=== PATIENT | female | born 1990 | race Asian ===

== ENCOUNTER 2016-12-13 14:30 | Outpatient (CLI) | payer OTHER ==
[2016-12-13] MEDS ORDERED: ALBUTEROL NEB 2.5 MG/3 ML INH ONE (15:35)
== END 2016-12-13 14:31 | disposition home or self-care (01) ==
DX: R05 Cough (principal)
CPT/HCPCS: 94060; 94664; 94729; J7613

== ENCOUNTER 2017-06-24 15:58 | Emergency (ER) | payer OTHER ==
[2017-06-24 16:15] VITALS: BP 125/86
[2017-06-24 17:02] LABS: BASOPHILS # (AUTO) 0.1 10^3/uL (0.0-0.1); BASOPHILS % (AUTO) 0.9 %; EOSINOPHILS # (AUTO) 0.1 10^3/uL (0.0-0.7); EOSINOPHILS % (AUTO) 1.1 %; HCT - HEMATOCRIT 40.4 % (37.0-47.0); HGB - HEMOGLOBIN 13.8 g/dL (12.0-16.0); LYMPHOCYTES # (AUTO) 2.9 10^3/uL (1.5-3.5); MEAN CORPUSCULAR HEMOGLOBIN 29.8 pg (27.0-31.0); MEAN CORPUSCULAR HGB CONC 34.2 g/dL (32.0-36.0); MEAN CORPUSCULAR VOLUME 87.1 fL (81.0-99.0); MEAN PLATELET VOLUME 6.6 fL (7.9-10.8); MONOCYTES # (AUTO) 0.8 10^3/uL (0.0-1.0); MONOCYTES % (AUTO) 7.6 %; NEUTROPHILS # (AUTO) 6.8 10^3/uL (1.5-6.6); NEUTROPHILS % (AUTO) 63.4 %; NUCLEATED RED BLOOD CELLS AUTO 0.1 /100WBC; RED BLOOD COUNT 4.64 10^6/uL (4.20-5.40); RED CELL DISTRIBUTION WIDTH 13.3 % (12.0-15.0); UNCORRECTED WHITE BLOOD COUNT 10.7 x10^3/uL; WHITE BLOOD COUNT 10.7 x10^3/uL (4.8-10.8)
[2017-06-24 17:16] LABS: ALBUMIN/GLOBULIN RATIO 1.4 (1.0-2.2); BILIRUBIN,TOTAL 0.5 mg/dL (0.2-1.0); CALCIUM 9.4 mg/dL (8.5-10.3); CREATININE 0.6 mg/dL (0.4-1.0); POTASSIUM 3.3 mmol/L (3.5-5.0); TOTAL PROTEIN 7.8 g/dL (6.7-8.2)
--- NOTE | 2017-06-24 17:23 | ED Physician Documentation ---
PD HPI CHEST PAIN - Stated complaint Stated Complaint: CP - Chief complaint Chief Complaint: Cardiac - History obtained from History obtained from: Patient - History of Present Illness Timing - onset: Today Timing - onset during: Light activity Timing - details: Abrupt onset, Still present, Intermittant Quality: Aching, Sharp, Pain Location: Right chest Radiation: Right upper extremity (anterior shoulder) Worsened by: Inspiration, Movement (of right arm) Associated symptoms: Feeling faint / dizzy. No: Shortness of air, Diaphoresis, Nausea, General Weakness, Palpitations Similar symptoms before: Has not had sx before Recently seen: Not recently seen Review of Systems Constitutional: denies: Fever, Chills Nose: denies: Rhinorrhea / runny nose, Congestion Throat: denies: Sore throat Cardiac: denies: Palpitations, Pedal edema, Calf pain Respiratory: denies: Cough, Wheezing GI: denies: Abdominal Pain, Nausea, Vomiting, Diarrhea Skin: denies: Rash, Lesions Musculoskeletal: denies: Neck pain, Back pain Neurologic: reports: Near syncope (felt lightheaded at onset of the pain but then normal since.). denies: Generalized weakness, Focal weakness, Numbness, Altered mental status, Headache PD PAST MEDICAL HISTORY - Past Medical History Cardiovascular: None Respiratory: None Endocrine/Autoimmune: None - Present Medications Home Medications: Ambulatory Orders Medication Instructions Recorded Confirmed Albuterol Sulf [Ventolin Hfa 1 - 2 puffs INH Q4HR PRN #1 inhaler 06/24/17 Inhaler] Naproxen 375 mg PO BID #20 tablet 06/24/17 - Allergies Allergies/Adverse Reactions: Allergies Allergy/AdvReac Type Severity Reaction Status Date / Time No Known Drug Allergies Allergy Verified 06/24/17 16:14 PD ED PE NORMAL - Vitals Vital signs reviewed: Yes - General General: Alert and oriented X 3, No acute distress, Well developed/nourished - HEENT HEENT: Ears normal, Moist mucous membranes, Pharynx benign - Neck Neck: Supple, no meningeal sign, No adenopathy - Cardiac Cardiac: RRR, No murmur - Respiratory Respiratory: Clear bilaterally, Other (some chestwall tenderness right pectoral muscle area and with ROM of the right arm.) - Abdomen Abdomen: Soft, Non tender - Extremities Extremities: No tenderness to palpate, Normal ROM s pain, No edema, No calf tenderness / cord - Neuro Neuro: Alert and oriented X 3, No motor deficit, Normal speech - Psych Psych: Normal mood, Normal affect Results - Vitals Vitals: Oxygen O2 Source Room air - EKG (time done) on presentation Rhythm: NSR [place]: Normal Intervals: Normal [place] QRS: Normal Ischemia: Normal ST segments. No: ST elevation c/w ischemia, ST depression - Labs Labs: Laboratory Tests 06/24/17 06/24/17 06/24/17 16:53 16:53 16:53 WBC 10.7 RBC 4.64 Hgb 13.8 Hct 40.4 MCV 87.1 MCH 29.8 MCHC 34.2 RDW 13.3 Plt Count 273 MPV 6.6 L Neut # 6.8 H Lymph # 2.9 [place] # 0.8 Eos # 0.1 Baso # 0.1 Absolute Nucleated RBC 0.01 Nucleated RBC % 0.1 Sodium 138 Potassium 3.3 L Chloride 101 Carbon Dioxide 29 Anion Gap 8.0 BUN 8 Creatinine 0.6 Estimated GFR (MDRD) 119 Glucose 126 H Calcium 9.4 Total Bilirubin 0.5 AST 26 ALT 26 Alkaline Phosphatase 27 L Troponin I < 0.04 Total Protein 7.8 Albumin 4.5 Globulin 3.3 Albumin/Globulin Ratio 1.4 Lipase 39 - Rads (name of study) chest xray Radiology: Prelim report reviewed, EMP read contemporaneously (normal) PD MEDICAL DECISION MAKING - ED course Complexity details: reviewed results, considered differential, d/w patient Departure - Departure Disposition: 01 Home, Self Care Clinical Impression: Chest wall pain Condition: Stable Record reviewed to determine appropriate education?: Yes Instructions: ED Chest Pain Atypical Unkn Cause Follow-Up: [facility] [Provider Group] Prescriptions: Albuterol Sulf [Ventolin Hfa Inhaler] 1 - 2 puffs INH Q4HR PRN #1 inhaler PRN Reason: Shortness Of Air/Wheezing Naproxen 375 mg PO BID #20 tablet Comments: Drink lots of fluids. Use your albuterol inhaler 2 puffs 2-3 times a day for the next 7-10 days. Also use naproxen twice daily for the next 7-10 days for presumed inflammation of the muscles. Add Tylenol if needed for pains. Follow- up with your primary care in about a week, call for an appointment. Forms: Activity restrictions Discharge Date/Time: 06/24/17 18:50
--- NOTE | 2017-06-24 17:57 | XRAY Preliminary Report ---
Exam: XR Chest 2 View PA/LAT IMPRESSION: Normal 2-view chest radiography. [facility] SITE ID: [id number]
--- NOTE | 2017-06-24 18:00 | XRAY Report ---
EXAM: CHEST RADIOGRAPHY EXAM DATE: 06/24/2017 05:24 PM. CLINICAL HISTORY: Chest Pain. COMPARISON: None. TECHNIQUE: 2 views. FINDINGS: Lungs/Pleura: No focal opacities evident. No pleural effusion. No pneumothorax. Normal volumes. Mediastinum: Heart and mediastinal contours are unremarkable. Other: None. IMPRESSION: Normal 2-view chest radiography. [facility] Referring Provider Line: [phone] SITE ID: [id number]
[2017-06-24] MEDS ORDERED: IBUPROFEN 400 MG TABLET PO STA (18:31)
[2017-06-24] MEDS ORDERED: ACETAMINOPHEN 325 MG TABLET PO STA (18:31)
[2017-06-24] MEDS ORDERED: ACETAMINOPHEN 325 MG TABLET PO ONE (18:44)
[2017-06-24] MEDS ORDERED: IBUPROFEN 400 MG TABLET PO ONE (18:45)
== END 2017-06-24 18:50 | disposition home or self-care (01) ==
LOC: EDUNIT# → ED 15:58
DX: R07.89 Other chest pain (principal)
CPT/HCPCS: 36415; 71020; 80053; 83690; 84484; 85025; 93005; 99283; A9270

== ENCOUNTER 2018-11-11 11:16 | Emergency (ER) | payer OTHER ==
--- NOTE | 2018-11-11 12:02 | XRAY Report ---
Reason: cough/sob Procedure Date: 11/11/2018 Accession Number: [id number] / [id number] Procedure: XR - Chest 2 View X-Ray CPT Code: 26938 FULL RESULT: EXAM: CHEST RADIOGRAPHY EXAM DATE: 11/11/2018 11:46 AM. CLINICAL HISTORY: Cough/sob. COMPARISON: None. TECHNIQUE: 2 views. FINDINGS: Lungs/Pleura: No focal opacities evident. No pleural effusion. No pneumothorax. Normal volumes. Mediastinum: Heart and mediastinal contours are unremarkable. Other: Negative bony structures. IMPRESSION: Normal 2-view chest radiography. [facility]
--- NOTE | 2018-11-11 14:46 | ED Physician Documentation ---
PD HPI URI - Stated complaint Stated Complaint: COUGHING,SOA - Chief complaint Chief Complaint: Resp - History obtained from History obtained from: Patient - History of Present Illness Timing - onset: How many days ago (3) Timing duration: Days (3) Timing details: Gradual onset Pain level max: 0 Pain level now: 0 Associated symptoms: Nasal congestion, Rhinorrhea, Dry cough. No: Fever, Chills, Sweats Contributing factors: Sick contact Improves by: Other (nyquil,dayquil) Worsened by: Activity, Breathing - Additional information Additional information: States she went outside in the snow in her swimming suit and jumped in the snow. States cough x 3 days now. no fevers. Has had chills. States green sputum. States hurts to cough and breath. Taking nyquil and dayquil. Review of Systems Constitutional: denies: Fever Nose: reports: Rhinorrhea / runny nose, Congestion Throat: denies: Sore throat Respiratory: reports: Cough GI: denies: Nausea, Vomiting, Diarrhea : denies: Dysuria, Frequency, Hesitancy, Now EGA Skin: denies: Rash PD PAST MEDICAL HISTORY - Past Medical History Past Medical History: No Cardiovascular: None Respiratory: None Endocrine/Autoimmune: None - Past Surgical History Past Surgical History: No - Present Medications Home Medications: Ambulatory Orders Medication Instructions Recorded Confirmed Albuterol Sulf [Ventolin Hfa 1 - 2 puffs INH Q4HR PRN #1 inhaler 06/24/17 Inhaler] Naproxen 375 mg PO BID #20 tablet 06/24/17 Benzonatate [Tessalon Perle] 100 - 200 mg PO TID PRN #30 capsule 11/11/18 Cetirizine HCl/Pseudoephedrine 1 each PO BID PRN #30 tab.er.12h 11/11/18 [Zyrtec-D Tablet] - Allergies Allergies/Adverse Reactions: Allergies Allergy/AdvReac Type Severity Reaction Status Date / Time No Known Drug Allergies Allergy Verified 11/11/18 11:26 - Social History Does the pt smoke?: No Smoking Status: Never smoker Does the pt drink ETOH?: No Does the pt have substance abuse?: No - Immunizations Immunizations are current?: Yes - POLST Patient has POLST: No PD ED PE NORMAL - Vitals Vital signs reviewed: Yes - General General: Alert and oriented X 3, No acute distress - HEENT HEENT: Ears normal, Moist mucous membranes, Pharynx benign - Neck Neck: Supple, no meningeal sign - Cardiac Cardiac: RRR, Strong equal pulses - Respiratory Respiratory: No respiratory distress, Clear bilaterally - Abdomen Abdomen: Soft, Non tender, Non distended - Derm Derm: Warm and dry - Neuro Neuro: Alert and oriented X 3 - Psych Psych: Normal mood, Normal affect Results - Vitals Vitals: Vital Signs - 24 hr 11/11/18 11/11/18 11:24 15:01 Temperature 37.0 C 37.0 C Heart Rate 94 88 Respiratory 18 18 Rate Blood Pressure 143/96 H 138/88 H O2 Saturation 100 100 Oxygen O2 Source Room air - Rads (name of study) cxr Radiology: Prelim report reviewed, EMP read contemporaneously, See rad report (Normal 2-view chest radiography. ) PD MEDICAL DECISION MAKING - ED course Complexity details: reviewed results, re-evaluated patient, considered differential, d/w patient ED course: 28-year-old female, well-appearing, nontoxic. No hypoxia. No respiratory distress. Appears to have a viral URI. We will continue supportive care and follow-up with her doctor. Patient counseled regarding signs and symptoms for which I believe and urgent re-evaluation would be necessary. Patient with good understanding of and agreement to plan and is comfortable going home at this time This document was made in part using voice recognition software. While efforts are made to proofread this document, sound alike and grammatical errors may occur. Departure - Departure Disposition: 01 Home, Self Care Clinical Impression: Viral URI Condition: Good Instructions: ED URI Viral Follow-Up: Provider,Other [Primary Care Provider] - Within 1 week Prescriptions: Benzonatate [Tessalon Perle] 100 - 200 mg PO TID PRN #30 capsule PRN Reason: Cough Cetirizine HCl/Pseudoephedrine [Zyrtec-D Tablet] 1 each PO BID PRN #30 tab.er.12h PRN Reason: nasal congestion Comments: Drink plenty of fluids and rest. Return if you worsen. This will last about 10- 14 days. Forms: Activity restrictions Discharge Date/Time: 11/11/18 15:01
[2018-11-11 15:02] VITALS: BP 138/88
== END 2018-11-11 15:01 | disposition home or self-care (01) ==
LOC: ED 11:16
DX: J06.9 Acute upper respiratory infection, unspecified (principal); B97.89 Other viral agents as the cause of diseases classified elsewhere
CPT/HCPCS: 71046; 99283

== ENCOUNTER 2019-05-12 20:43 | Emergency (ER) | payer OTHER ==
[2019-05-12 21:02] LABS: BILIRUBIN,URINE NEGATIVE (NEGATIVE); GLUCOSE, URINE (UA) NEGATIVE (NEGATIVE); KETONES,URINE (UA) NEGATIVE (NEGATIVE); LEUKOCYTE ESTERASE, URINE NEGATIVE (NEGATIVE); NITRITE,URINE NEGATIVE (NEGATIVE); OCCULT BLOOD,URINE SMALL (NEGATIVE); PH,URINE 6.5 PH (5.0-7.5); PROTEIN,URINE NEGATIVE (NEGATIVE); UROBILINOGEN,URINE 0.2 (NORMAL) E.U./dL (NORMAL)
[2019-05-12 21:03] LABS: CLARITY,URINE CLEAR (CLEAR)
[2019-05-12 21:10] LABS: HCG UR QUAL NEGATIVE
--- NOTE | 2019-05-12 21:22 | ED Physician Documentation ---
History of Present Illness - Stated complaint Stated Complaint: ABD PX - Chief complaint Chief Complaint: Abd Pain - Additonal information Additional information: This is a 28-year-old female with a history of C-sections, no other abdominal surgeries, who presents with left lateral flank pain for 1 day. The pain began at work, patient does not remember a specific twisting, pulling, or other inciting event. Since that time she has had a constant ache on the left lateral abdomen, which is worse with certain movements and with direct pressure. She denies any hematuria, dysuria, suprapubic pain, right lower quadrant or right upper quadrant pain. No nausea or vomiting. Her bowel movements have been normal. She denies concern for . No fever or chills. No abnormal vaginal bleeding or discharge. 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 - Present Medications Home Medications: Ambulatory Orders Medication Instructions Recorded Confirmed RX: Albuterol Sulf [Ventolin Hfa 1 - 2 puffs INH Q4HR PRN #1 inhaler 06/24/17 Inhaler] RX: Naproxen 375 mg PO BID #20 tablet 06/24/17 Benzonatate [Tessalon Perle] 100 - 200 mg PO TID PRN #30 capsule 11/11/18 Cetirizine HCl/Pseudoephedrine 1 each PO BID PRN #30 tab.er.12h 11/11/18 [Zyrtec-D Tablet] RX: Acetaminophen 650 mg PO Q6HR #30 tablet 05/12/19 RX: Ibuprofen 600 mg PO Q6H PRN #30 tablet 05/12/19 - Allergies Allergies/Adverse Reactions: Allergies Allergy/AdvReac Type Severity Reaction Status Date / Time No Known Drug Allergies Allergy Verified 11/11/18 11:26 - Social History Does the pt smoke?: No Smoking Status: Never smoker Does the pt drink ETOH?: No Does the pt have substance abuse?: No - Immunizations Immunizations are current?: Yes - POLST Patient has POLST: No PD ED PE NORMAL - Vitals Vital signs reviewed: Yes - General General: Alert and oriented X 3, No acute distress - HEENT HEENT: PERRL - Cardiac Cardiac: RRR, No murmur - Respiratory Respiratory: Clear bilaterally - Abdomen Abdomen: Soft, Non distended, Other (Patient is tender just inferior to the left lateral lower ribs in the posterior axillary line. She is nontender over the right lower quadrant, right upper quadrant, or anterior abdomen. No guarding.) - Derm Derm: Warm and dry - Extremities Extremities: No deformity - Neuro Neuro: Alert and oriented X 3 - Psych Psych: Normal mood, Normal affect Results - Vitals Vitals: Vital Signs - 24 hr 05/12/19 05/12/19 20:46 22:31 Temperature 36.5 C 36.8 C Heart Rate 60 85 Respiratory 14 20 Rate Blood Pressure 156/94 H 139/96 H O2 Saturation 100 97 Oxygen O2 Source Room air - Labs Labs: Laboratory Tests 05/12/19 05/12/19 05/12/19 20:52 21:58 21:58 WBC 8.4 RBC 4.35 Hgb 12.9 Hct 38.8 MCV 89.2 MCH 29.7 MCHC 33.2 RDW 12.8 Plt Count 275 MPV 8.4 Neut # (Auto) 3.5 Lymph # (Auto) 3.9 H [place] # (Auto) 0.6 Eos # (Auto) 0.3 Baso # (Auto) 0.1 Absolute Nucleated RBC 0.00 Nucleated RBC % 0.0 Sodium 142 Potassium 3.6 Chloride 104 Carbon Dioxide 26 Anion Gap 12.0 BUN 10 Creatinine 0.6 Estimated GFR (MDRD) 117 Glucose 108 H Calcium 9.6 Total Bilirubin 0.4 AST 37 ALT 85 H Alkaline Phosphatase 34 L Total Protein 7.7 Albumin 4.3 Globulin 3.4 Albumin/Globulin Ratio 1.3 Lipase 42 Urine Color YELLOW Urine Clarity CLEAR Urine pH 6.5 Ur Specific [place] 1.010 Urine Protein NEGATIVE Urine Glucose (UA) NEGATIVE Urine Ketones NEGATIVE Urine Occult Blood SMALL H Urine Nitrite NEGATIVE Urine Bilirubin NEGATIVE Urine Urobilinogen 0.2 (NORMAL) Ur Leukocyte Esterase NEGATIVE Urine RBC 0-5 Urine WBC 0-3 Ur Squamous Epith Cells FEW Squamous Urine Bacteria Rare Ur Microscopic Review INDICATED Urine Culture Comments NOT INDICATED Urine HCG, Qual NEGATIVE PD MEDICAL DECISION MAKING - ED course Complexity details: considered differential (Muscle strain, pyelonephritis, UTI, nephrolithiasis, pancreatitis, contusion, strain, sprain) ED course: On exam patient is very well-appearing, vital signs are unremarkable. She is focal tenderness over the muscles of the left lateral flank. Her pain is reproducible with certain movements, suggesting likely musculoskeletal etiology. It is not colicky, and the character her history make nephrolithiasis less likely. Urinalysis Is not convincing for infection, CBC is unremarkable, CMP shows an isolated slightly elevated ALT, otherwise unremarkable. She does not have any right upper quadrant tenderness, I think the ALT is likely unrelated to her current complaint, I recommended she follow-up with her primary care provider on this finding. Her hCG is also negative. I discussed with the patient that her labs are unrevealing and overall reassuring. Given the mildness of her discomfort, the fact that she has a benign abdominal exam, I doubt acute abdominal pathology. Her pain does appear to be most likely muscu loskeletal. I discussed supportive care and close observation, if she develops new symptoms or if her pain worsens she will return to the emergency department. Otherwise she will follow-up with her primary care provider. Patient discharged in the care of her partner. Departure - Departure Disposition: 01 Home, Self Care Clinical Impression: Flank pain Condition: Good Instructions: ED Strain Abdominal Muscle Follow-Up: Your,PCP [Other] - Within 1 week Prescriptions: RX: Acetaminophen 650 mg PO Q6HR #30 tablet RX: Ibuprofen 600 mg PO Q6H PRN #30 tablet PRN Reason: Pain Comments: You were seen today for pain in your left flank. You do have a mild elevation of the liver enzyme ALT, please follow-up with your primary care provider on this. I do not think is related to your pain today. You likely have a strain of a muscle, but if you have worsening or changing symptoms please see your primary care provider return to the emergency department. If you develop fever, blood in your urine, or severe abdominal pain come back immediately. Discharge Date/Time: 05/12/19 22:41
[2019-05-12 21:35] LABS: BACTERIA,URINE Rare /HPF (None Seen); RBC,URINE 0-5 /HPF (0-5); SQUAMOUS EPITHELIAL CELL,UR FEW Squamous (<= Few)
[2019-05-12] MEDS ORDERED: ACETAMINOPHEN 325 MG TABLET PO STA (21:50)
[2019-05-12 22:02] LABS: BASOPHILS # (AUTO) 0.1 10^3/uL (0.0-0.1); BASOPHILS % (AUTO) 0.7 %; EOSINOPHILS # (AUTO) 0.3 10^3/uL (0.0-0.7); EOSINOPHILS % (AUTO) 3.6 %; HGB - HEMOGLOBIN 12.9 g/dL (12.0-16.0); LYMPHOCYTES # (AUTO) 3.9 10^3/uL (1.5-3.5); LYMPHOCYTES % (AUTO) 46.8 %; MEAN CORPUSCULAR HEMOGLOBIN 29.7 pg (27.0-31.0); MEAN CORPUSCULAR HGB CONC 33.2 g/dL (32.0-36.0); MEAN CORPUSCULAR VOLUME 89.2 fL (81.0-99.0); MEAN PLATELET VOLUME 8.4 fL (7.9-10.8); MONOCYTES # (AUTO) 0.6 10^3/uL (0.0-1.0); MONOCYTES % (AUTO) 7.4 %; NEUTROPHILS # (AUTO) 3.5 10^3/uL (1.5-6.6); NEUTROPHILS % (AUTO) 41.1 %; PLT - PLATELET COUNT 275 10^3/uL (130-450); RED BLOOD COUNT 4.35 10^6/uL (4.20-5.40); RED CELL DISTRIBUTION WIDTH 12.8 % (12.0-15.0); WHITE BLOOD COUNT 8.4 x10^3/uL (4.8-10.8)
[2019-05-12 22:15] LABS: ALBUMIN 4.3 g/dL (3.2-5.5); ALBUMIN/GLOBULIN RATIO 1.3 (1.0-2.2); BILIRUBIN,TOTAL 0.4 mg/dL (0.2-1.0); CALCIUM 9.6 mg/dL (8.5-10.3); CREATININE 0.6 mg/dL (0.4-1.0); TOTAL PROTEIN 7.7 g/dL (6.7-8.2)
[2019-05-12 22:31] VITALS: BP 139/96
== END 2019-05-12 22:41 | disposition home or self-care (01) ==
LOC: ED 20:43
DX: R10.9 Unspecified abdominal pain (principal); R74.8 Abnormal levels of other serum enzymes
CPT/HCPCS: 80053; 81001; 81025; 83690; 85025; 99283; 99284; A9270; 36415; 81003; 87086

== ENCOUNTER 2019-09-09 09:32 | Emergency (ER) | payer OTHER ==
[2019-09-09] MEDS ORDERED: SUMAtriptan 6 MG/0.5 ML VIAL SUBQ STA (10:24)
--- NOTE | 2019-09-09 10:29 | ED Physician Documentation ---
PD HPI HEADACHE - Stated complaint Stated Complaint: JIMÉNEZ - Chief complaint Chief Complaint: Neuro - History obtained from History obtained from: Patient - History of Present Illness Timing - onset: How many weeks ago (1) Timing - onset during: Rest Timing - duration: Weeks (1) Timing - details: Gradual onset Pain level max: 7 Pain level now: 5 Location: Front Quality: No: Thunderclap, Throbbing, Aching, Stabbing, Tightness, Like head is exploding Associated symptoms: No: Fever, Stiff neck, Nausea, Vomiting, Weakness, Numbness, Seizure, Eye pain, Vision changes Improved by: Rest, Dark room Worsened by: Light, Noise Contributing factors: No: Anticoagulated, Possible carbon monoxide, Hypertension, Recent illness, Trauma Similar symptoms before: No: Diagnosis, No diagnosis, Work up / diagnostics, Treatment, Follow up, Has not had sx before Recently seen: Clinic (for same) Review of Systems Constitutional: denies: Fever, Chills Throat: denies: Sore throat Cardiac: denies: Chest pain / pressure Respiratory: denies: Cough, Hemoptysis, Wheezing GI: denies: Vomiting, Diarrhea Skin: denies: Rash Musculoskeletal: denies: Neck pain, Back pain Neurologic: denies: Headache PD PAST MEDICAL HISTORY - Past Medical History Past Medical History: Yes Cardiovascular: None Respiratory: Asthma Neuro: None Endocrine/Autoimmune: None GI: None 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 : None HEENT: None Psych: None Musculoskeletal: None Derm: None - Past Surgical History Past Surgical History: Yes /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 - Present Medications Home Medications: Ambulatory Orders Medication Instructions Recorded Confirmed Albuterol Sulf [Ventolin Hfa 1 - 2 puffs INH Q4HR PRN #1 inhaler 06/24/17 Inhaler] Naproxen 375 mg PO BID #20 tablet 06/24/17 Benzonatate [Tessalon Perle] 100 - 200 mg PO TID PRN #30 capsule 11/11/18 Cetirizine HCl/Pseudoephedrine 1 each PO BID PRN #30 tab.er.12h 11/11/18 [Zyrtec-D Tablet] Acetaminophen 650 mg PO Q6HR #30 tablet 05/12/19 Ibuprofen 600 mg PO Q6H PRN #30 tablet 05/12/19 Butalb/Acetaminophen/Caffeine 1 each PO Q8H PRN #10 capsule 09/09/19 [Fioricet 50-300-40 mg Capsule] - Allergies Allergies/Adverse Reactions: Allergies Allergy/AdvReac Type Severity Reaction Status Date / Time No Known Drug Allergies Allergy Verified 09/09/19 09:55 - Social History Does the pt smoke?: No Smoking Status: Never smoker Does the pt drink ETOH?: No Does the pt have substance abuse?: No - Immunizations Immunizations are current?: Yes - POLST Patient has POLST: No PD ED PE NORMAL - Vitals Vital signs reviewed: Yes - General General: Alert and oriented X 3, No acute distress - HEENT HEENT: Atraumatic, PERRL, Ears normal, Moist mucous membranes, Pharynx benign - Neck Neck: Supple, no meningeal sign - Cardiac Cardiac: RRR, Strong equal pulses - Respiratory Respiratory: No respiratory distress, Clear bilaterally - Abdomen Abdomen: Soft, Non tender, Non distended - Derm Derm: Warm and dry - Extremities Extremities: No edema, No calf tenderness / cord - Neuro Neuro: Alert and oriented X 3, shale miner 2-12 intact, No motor deficit, No sensory deficit, Normal speech Eye Opening: Spontaneous Motor: Obeys Commands Verbal: Oriented GCS Score: 15 - Psych Psych: Normal mood, Normal affect Results - Vitals Vitals: Vital Signs - 24 hr 09/09/19 09/09/19 09:52 11:24 Temperature 36.7 C 36.3 C L Heart Rate 72 80 Respiratory 18 16 Rate Blood Pressure 156/97 H 159/106 H O2 Saturation 98 100 Oxygen O2 Source Room air PD MEDICAL DECISION MAKING - ED course Complexity details: re-evaluated patient, considered differential, d/w patient ED course: Patient is well-appearing, nontoxic. Afebrile. No evidence of meningitis, subarachnoid hemorrhage. Headache improved with Imitrex. She had some mild nausea and this resolved with Zofran. Will prescribe a small amount of Fioricet for home and have her follow-up with her doctord. Patient counseled regarding signs and symptoms for which I believe and urgent re-evaluation would be necessary. Patient with good understanding of and agreement to plan and is comfortable going home at this time This document was made in part using voice recognition software. While efforts are made to proofread this document, sound alike and grammatical errors may occur. Departure - Departure Disposition: 01 Home, Self Care Clinical Impression: Headache Qualifiers: Headache type: unspecified Headache chronicity pattern: acute headache Intractability: not intractable Qualified Code(s): R51 - Headache Condition: Good Instructions: ED Headache Migraine Follow-Up: your,doctor in 1 week [Other] Prescriptions: Butalb/Acetaminophen/Caffeine [Fioricet 50-300-40 mg Capsule] 1 each PO Q8H PRN #10 capsule PRN Reason: headache Comments: Do not drive or operate heavy machinery while taking Fioricet. Return if you worsen. Go home and rest today. Discharge Date/Time: 09/09/19 11:53
[2019-09-09 11:25] VITALS: BP 159/106
[2019-09-09] MEDS ORDERED: ONDANSETRON ODT 4 MG TABLET TL STA (11:37)
== END 2019-09-09 11:53 | disposition home or self-care (01) ==
LOC: ED 09:32
DX: R51 Headache (principal); R11.0 Nausea
CPT/HCPCS: 96372; 99283; 99284; Q0162

== ENCOUNTER 2019-10-15 11:36 | Emergency (ER) | payer OTHER ==
[2019-10-15 11:47] VITALS: BP 120/84
== END 2019-10-15 14:00 | disposition left against medical advice (07) ==
LOC: ED 11:36
DX: Z53.21 Procedure and treatment not carried out due to patient leaving prior to being seen by health care provider (principal)

== ENCOUNTER 2019-10-16 14:30 | Emergency (ER) | payer OTHER ==
--- NOTE | 2019-10-16 15:13 | ED Physician Documentation ---
PD HPI URI - Stated complaint Stated Complaint: COUGH - Chief complaint Chief Complaint: Resp - History obtained from History obtained from: Patient - History of Present Illness Timing - onset: How many weeks ago (2) Timing duration: Weeks (2) Associated symptoms: Nasal congestion, Rhinorrhea, Productive cough, Hemoptysis, NVD. No: Fever, Ear pain Recently seen: Not recently seen - Additional information Additional information: This is a 28-year-old woman with a history of asthma who presents with complaints that she is been coughing for 2 weeks. Most of the phlegm is been clear but occasional green and she did have some redness to the sputum a few days ago that since she is not sure if it was blood or not. She does have a very stuffy nose with clear rhinorrhea and a postnasal drip. Denies any ear pain. She has a history of asthma but her inhaler has [place] Patient has tried Robitussin, Mucinex, NyQuil and DayQuil for the cough none of which seems to be helping. She cannot sleep because she is coughing so much. She is also had body aches mainly across her shoulder girdle. She had an episode of vomiting related to the coughing yesterday. She denies fever and denies . Review of Systems Constitutional: denies: Fever Ears: denies: Ear pain Nose: reports: Rhinorrhea / runny nose Throat: denies: Sore throat Respiratory: reports: Dyspnea, Cough GI: reports: Vomiting PD PAST MEDICAL HISTORY - Past Medical History Cardiovascular: None Respiratory: Asthma Neuro: None Endocrine/Autoimmune: None GI: None [employer]: None : None HEENT: None Psych: None Musculoskeletal: None Derm: None - Past Surgical History Past Surgical History: Yes /AIR [employer]TE [employer]IC [employer]ER: section - Present Medications Home Medications: Ambulatory Orders Medication Instructions Recorded Confirmed Albuterol Sulf [Ventolin Hfa 1 - 2 puffs INH Q4HR PRN #1 inhaler 06/24/17 Inhaler] Naproxen 375 mg PO BID #20 tablet 06/24/17 Benzonatate [Tessalon Perle] 100 - 200 mg PO TID PRN #30 capsule 11/11/18 Cetirizine HCl/Pseudoephedrine 1 each PO BID PRN #30 tab.er.12h 11/11/18 [Zyrtec-D Tablet] Acetaminophen 650 mg PO Q6HR #30 tablet 05/12/19 Ibuprofen 600 mg PO Q6H PRN #30 tablet 05/12/19 Butalb/Acetaminophen/Caffeine 1 each PO Q8H PRN #10 capsule 09/09/19 [Fioricet 50-300-40 mg Capsule] Albuterol Sulf [Ventolin Hfa 1 - 2 puffs INH Q4HR PRN #1 inhaler 10/16/19 Inhaler] Azithromycin [Zithromax] 0 mg PO DAILY #6 tablet 10/16/19 Benzonatate [Tessalon Perle] 100 - 200 mg PO TID PRN #30 capsule 10/16/19 Codeine Phosphate/Guaifenesin 5 ml PO Q6HR #60 ml 10/16/19 [Guaifen-Codeine 100-10 mg/5 ml] - Allergies Allergies/Adverse Reactions: Allergies Allergy/AdvReac Type Severity Reaction Status Date / Time No Known Drug Allergies Allergy Verified 10/16/19 14:39 - Social History Does the pt smoke?: No Smoking Status: Never smoker Does the pt drink ETOH?: No Does the pt have substance abuse?: No - Immunizations Immunizations are current?: Yes - POLST Patient has POLST: No PD ED PE NORMAL - Vitals Vital signs reviewed: Yes - General General: Alert and oriented X 3, No acute distress, Well developed/nourished - HEENT HEENT: Atraumatic, PERRL, EOMI, Ears normal, Moist mucous membranes, Pharynx be nign - Neck Neck: Supple, no meningeal sign, No adenopathy - Cardiac Cardiac: RRR, No murmur - Respiratory Respiratory: No respiratory distress, Clear bilaterally, Other (No wheezing but the patient has just repetitive dry staccato sounding cough.) Results - Vitals Vitals: Vital Signs - 24 hr 10/16/19 14:39 Temperature 36.7 C Heart Rate 73 Respiratory 18 Rate Blood Pressure 141/88 H O2 Saturation 98 Oxygen O2 Source Room air PD MEDICAL DECISION MAKING - ED course Complexity details: d/w patient ED course: Patient has been coughing for 2 weeks and has a history of asthma. Have elected to put her on a Zithromax Z-NOVA. She is given prescription for Tessalon Perles to use during the day and a codeine cough syrup for night if needed. At her request her inhaler was also refilled. Departure - Departure Disposition: 01 Home, Self Care Clinical Impression: Bronchitis Condition: Good Instructions: ED Upper Resp Infec Abx Tx Follow-Up: VICENTE WYATT ARNP [Primary Care Provider] - Prescriptions: Albuterol Sulf [Ventolin Hfa Inhaler] 1 - 2 puffs INH Q4HR PRN #1 inhaler PRN Reason: Shortness Of Air/Wheezing Codeine Phosphate/Guaifenesin [Guaifen-Codeine 100-10 mg/5 ml] 5 ml PO Q6HR #60 ml Azithromycin [Zithromax] 0 mg PO DAILY #6 tablet Benzonatate [Tessalon Perle] 100 - 200 mg PO TID PRN #30 capsule PRN Reason: Cough Comments: Take the Zithromax Z-Nova as prescribed. Use the Tessalon cough capsules during the day up to 3 times a day as needed. May use the codeine cough syrup at night if needed. He had a refill on your albuterol inhaler as well[place]
[2019-10-16 16:00] VITALS: BP 137/97
== END 2019-10-16 15:59 | disposition home or self-care (01) ==
LOC: ED 14:30
DX: J40 Bronchitis, not specified as acute or chronic (principal)
CPT/HCPCS: 99283; 99284

== ENCOUNTER 2021-01-15 10:02 | Outpatient (CLI) | payer OTHER ==
[2021-01-17 20:53] VITALS: BP 99/60
--- NOTE | 2021-01-17 20:53 | SLEEP CARE CONSULTATION ---
Information from patient questionnaire entered by Beto Lester. I have reviewed and concur with the information entered by Beto Lester. This document represents the service I personally performed and the decisions made by me, Mehnaz Christy MD, [facility]. History of Present Illness Service Date and Time: 01/15/2021 1002 Reason for Visit: New patient Chief Complaint: reports: Observed pauses in breathing, Frequent awakenings at night Date of Onset: Years Usual bedtime: 9:00 PM Time it takes to fall asleep: 1 hr to 2 hr Snores at night: Yes Observed to quit breathing while asleep: Yes Sleeps alone due to snoring: No Reasons for waking at night: reports: Snoring, Bathroom Toss, Turn, or Twitch while sleeping: Yes Recalls having dreams: Yes Usually gets out of bed at: 500 or 600 AM Feels refreshed in the morning: No Morning headache: Yes (sometimes) Sleepy or fatigued during the day: Yes Ever fallen asleep while driving: Yes (sometimes) Takes day naps: Yes (sometimes) Dreams during day naps: Yes (sometimes) Prior sleep studies: No Additional HPI information: I have the pleasure of seeing Ms. Parker today regarding the possibility of her having obstructive sleep apnea. As you know, she is a 30 year old lady who complains of loud snore and observed apneas. She complains of excessive daytime sleepiness despite getting adequate sleep at night. [place] Sleepiness Scale score is 9. She has fallen asleep driving. She has a sister with obstructive sleep apnea-hypopnea and uses a CPAP. 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 Patient is and lives in [place] Have you smoked in the past 12 months: No Alcohol use: Yes Alcohol amount and frequency: 1 glass wine, occasionally Caffeine use: Yes Caffeine amount and frequency: 2 coffee a day, one morning. One afternoon Family History Family history of sleep disordered breathing: Yes Family Hx Sleep Apnea: Mother: Snoring, Father: Snoring, Sibling: Sleep apnea - Treated, Grandparent: Snoring Allergies and Home Medications Drug allergies reviewed: Yes Home medication list reviewed: Yes Review of Systems Weight gain over past 5 years: 130 Weight loss over past 5 years: 10 Cardiovascular: denies: high blood pressure, palpitations, chest pain, irregular heart rate or pulse, leg or foot swelling, have to sleep sitting up, other Respiratory: reports: shortness of breath, chronic cough Gastrointestinal: denies: heartburn, difficulty swallowing, nausea, vomitting, diarrhea, abdominal pain, other Urinary: denies: incontinence, frequency, urgency, impotence, other Neurological: reports: headaches Psychiatric: denies: Attention Deficit Hyperactivity, anxiety, depression, mood disorder, claustrophobia, other Ear/Nose/Throat: denies: nasal congestion, sinus problems, nose bleeds, dry mouth/throat, hoarseness, injury to nose, tonsillectomy, wisdom teeth removed, other Endocrine: denies: thyroid disease, history of goiter, sluggishness, too hot or cold, excessive thirst, increased appetite, increased urination, unexplained weakness, other Musculoskeletal: denies: joint pain, neck pain, back pain, joint swelling, muscle pain or cramping, mobility problems, other Immunologic: denies: sneezing, rash, itching, allergies to food or environment, other Physical Exam Vital signs obtained and entered by: Dr. Christy Blood Pressure: 99/60 Cuff size: regular Heart Rate: 70 O2 Saturation: 98 Height: 4 ft 11 in Weight: 130 lb Body Mass Index: 26.2 BMI Classification: Overweight Neck circumference: 13 Mood/affect: normal HEENT: No craniofacial malformation Nostrils: patent to airflow Turbinates: normal Septum: midline Mouth and throat: narrow oropharynx Soft palate: long Hard palate: normal Uvula: normal Uvula visualization: 25% Mallampati Class III Tongue: normal in size Tonsils: small Chin and jaw: normal size and position Neck: normal w/o lymphadenopathy or thyromegaly Impression and Plan IMPRESSION: 1. Obstructive Sleep Apnea-Hypopnea Syndrome, as evident by history of loud and irregular snoring, observed cessation of breath while asleep, frequent awakenings during the night, unrefreshed sleep, and daytime hypersomnolence. Narrow oropharynx and obesity are common predisposing factors for obstructive sleep apnea-hypopnea syndrome. Untreated obstructive sleep apnea can also cause hypertension. I recommend proceeding to polysomnography to confirm the diagnosis and to assess severity. The patient would like to first have a home sleep apnea test (HSAT). Plan: 1. Schedule a home sleep apnea test (HSAT). 2. Avoid long distance driving or when feeling sleepy. 3. Avoid alcohol, sedative and muscle relaxant around bedtime. 4. Attempt to lose weight. 5. Return for follow up after the test. Follow up recommended for: Weight management Visit Type: In Office Time Spent with Patient (minutes): 15 Provider Statement: I spent 100% of the Face to Face Visit with the patient with greater than 50% spent counseling the patient and coordination of care.
== END 2021-01-15 10:03 | disposition home or self-care (01) ==
LOC: SC 10:02
PROVIDERS: ATTEND Internal Medicine Pulmonary Disease
DX: G47.10 Hypersomnia, unspecified (principal); G47.8 Other sleep disorders; R06.83 Snoring; E66.3 Overweight; Z68.26 Body mass index [BMI] 26.0-26.9, adult
CPT/HCPCS: 99202; 99212

== ENCOUNTER 2021-01-24 11:00 | Outpatient (CLI) | payer OTHER | END 2021-01-24 11:01 | disposition home or self-care (01) | LOC: SC 11:00 | PROVIDERS: ATTEND Internal Medicine Pulmonary Disease | DX: G47.33 Obstructive sleep apnea (adult) (pediatric) (principal) | CPT/HCPCS: 95806 ==

== ENCOUNTER 2021-02-01 09:23 | Outpatient (CLI) | payer OTHER ==
--- NOTE | 2021-02-01 09:52 | SLEEP CARE CONSULTATION ---
Information from patient questionnaire entered by Cara Chase. I have reviewed and concur with the information entered by Cara Chase. This document represents the service I personally performed and the decisions made by , Mery nAdrea ARNP. History of Present Illness Service Date and Time: 02/01/2021922 Initial [place] Sleepiness Scale score: 9 (in 2020) Current [place] Sleepiness Scale score: 8 Additional HPI information: BECKY HUNTER returns for follow up and results of the recently performed home sleep study. I explained the pathophysiology behind obstructive sleep apnea. We then spent quite a bit of time discussing different treatment options. For mild obstructive sleep apnea, surgery and oral appliance are alternatives to nasal CPAP therapy but in moderate or severe cases, nasal CPAP is the most effective and reliable treatment. Because apnea is primarily in supine position, then positional management therapy could be effective. Methods discussed such as positioning with pillows, using a T-shirt with tennis balls in the back, and shown commercial products that have a pillow format on back to prevent supine sleep. I reviewed the impact of weight changes on sleep apnea and recommended to continue efforts to lose weight. I explained how CPAP machine works with sample devices RespirISVWorlds Dreamstation and ResEachpal [id number] and what to expect when using the machine. [facility] patient education and Non Pap treatment pamphlets reviewed and given to patient. Patient does not drink alcohol. Patient was cautioned about risks of drowsy driving until sleepiness symptoms resolve. Sleep Study - Results Type of Sleep Study: Home sleep study Prior sleep studies: No Polysomnography/Home Sleep Study results: Physician Impression: The quality of the study is fair due to partial loss of pulse oximetry signal. The length of the study is adequate (> 240 minutes). Please also see the tabulated and graphic data. 1. Obstructive Sleep Apnea-Hypopnea (ICD-10 G47.33), mild, with an AHI of 7.0/hr and ailin SaO2 of 85%. During the study, the patient had 23 apneas (23 obstructive, 0 central, 0 mixed) and 27 hypopneas. The longest episode lasted 83.0 seconds. The respiratory events occurred almost exclusively during supine sleep (supine AHI was 10.3 and non-supine, 1.81). 2. Hypoxemia (ICD-10 R09.02), mild, with the lowest oxygen saturation of 85 % and 13.5 minutes with SaO2 under 90%. Baseline oxygen saturation was normal (Average oxygen saturation was 96%). Allergies and Home Medications Home medication list reviewed: Yes (no new meds) Review of Systems Review of systems same as previous: Yes (no changes) Physical Exam Heart Rate: 94 O2 Saturation: 99 Height: 5 ft Weight: 130 lb Body Mass Index: 25.4 BMI Classification: Overweight Impression and Plan 1. Obstructive Sleep Apnea-Hypopnea Syndrome, mild, with lowest oxygen saturation of 85%. Obviously this is the cause of the patients symptoms of unrefreshed sleep, and excessive daytime sleepiness. Positive pressure therapy could benefit her overall health and reduce risks for cardiovascular or cerebrovascular adverse events. Patient has a history of asthma. Since patients apnea is primarily in supine position, patient advised that she can try positional therapy and she agreed with plan. She is also advised to lose weight as this will reduce snoring and apnea. An oral appliance can also be used for snoring but often is not covered by insurance. Follow up is scheduled for one month to check effectiveness and if further evaluation indicated such a repeat study in supine position only to see if additional treatment indicated. * Positional therapy * Continue to try to lose weight. * Avoid alcohol consumption near bedtime. * Avoid supine sleep. * The patient is again cautioned about driving until sleepiness completely resolves. * Return in one month. I will assess response to therapy and compliance at that time. Counseling Topics: Sleeping position, Weight loss health impact, Weight control Visit Type: In Office Time Spent with Patient (minutes): 21 Provider Statement: I spent 100% of the Face to Face Visit with the patient with greater than 50% spent counseling the patient and coordination of care.
== END 2021-02-01 09:24 | disposition home or self-care (01) ==
LOC: SC 09:23
PROVIDERS: ATTEND Nurse Practitioner Family
DX: G47.33 Obstructive sleep apnea (adult) (pediatric) (principal); R09.02 Hypoxemia; E66.3 Overweight; Z68.25 Body mass index [BMI] 25.0-25.9, adult
CPT/HCPCS: 99212; 99213

== ENCOUNTER 2021-03-27 08:20 | Outpatient (CLI) | payer OTHER ==
--- NOTE | 2021-03-27 08:41 | SLEEP CARE CONSULTATION ---
Information from patient questionnaire entered by Cara Chase. I have reviewed and concur with the information entered by Cara Chase. This document represents the service I personally performed and the decisions made by , Mery Andrea ARNP. History of Present Illness Service Date and Time: 03/27/2021 0820 Previous diagnosis: Mild, Obstructive Sleep Apnea-Hypopnea Syndrome AHI: 7.0 (in 2020) Reason for follow up: other (6 week, positional therapy) Prior sleep studies: Yes Year and Where: 2020 - [facility] Type of Sleep Study: Home sleep study HPI additional information: BECKY HUNTER was diagnosed to have mild, AHI 7.0, obstructive sleep apnea- hypopnea syndrome and returned today for positional therapy 6 week follow-up. CPAP Compliance Data Compliance data discussion: She has been staying up at night. She is getting on average 8 hours of sleep. She still wakes up in the middle of the night at least once. She will take a "cat nap" in the middle of the day but she makes sure it is not too late in afternoon. She is trying to lose weight by cutting out sugar and watching what she eats. She is busy with running kids around but not exercising regularly. She has been sleeping mostly on her left side but will sleep on her right. She has rarely fallen asleep (1-2 times) on her back. She feels she is sleeping better when on her side. She feels she is less sleepy during the day. Subjective On therapy, patient: reports: sleeping better, awakening more refreshed, more rested overall. denies: drowsiness while driving Initial [place] Sleepiness Scale score: 9 (in 2020) Current [place] Sleepiness Scale score: 0 Allergies and Home Medications Home medication list reviewed: Yes (no changes) Review of Systems Review of systems same as previous: Yes (no changes) Physical Exam Heart Rate: 76 O2 Saturation: 98 Height: 5 ft Weight: 130 lb Body Mass Index: 25.4 BMI Classification: Overweight Impression and Plan 1. Obstructive Sleep Apnea-Hypopnea Syndrome, mild. On positional therapy, the patient has better sleep quality and is more rested overall. Patient is able to stay on her side or stomach regularly. There has only been a couple nights where she slept on her back due to back pain. She feels the positional therapy is working well for her and would like to continue at this time. We discussed continuing to try to lose weight to help reduce the snoring and apneas. She is going work on cutting sugar out more and increasing her exercise. She is very busy with her children, running them to summer activities and try to stay cool. I will follow up with her in about 3 months. Patient's apnea severity and rationale for treatment to reduce apnea, improve sleep quality and reduce cardiovascular and cerebrovascular events was reviewed. * Continue positional therapy * Continue to try to lose weight * Call this office if any problems * Return for follow up in 3 months, or sooner if concerns arise Counseling Topics: Sleeping position, Weight loss health impact Visit Type: In Office Time Spent with Patient (minutes): 17 Provider Statement: I spent 100% of the Face to Face Visit with the patient with greater than 50% spent counseling the patient and coordination of care.
== END 2021-03-27 08:21 | disposition home or self-care (01) ==
LOC: SC 08:20
PROVIDERS: ATTEND Nurse Practitioner Family
DX: G47.33 Obstructive sleep apnea (adult) (pediatric) (principal); E66.3 Overweight; Z68.25 Body mass index [BMI] 25.0-25.9, adult
CPT/HCPCS: 99212

== ENCOUNTER 2021-06-29 16:29 | Outpatient (CLI) | payer OTHER ==
--- NOTE | 2021-06-29 16:41 | SLEEP CARE CONSULTATION ---
Information from patient questionnaire entered by Beto Lester. I have reviewed and concur with the information entered by Beto Lester. This document represents the service I personally performed and the decisions made by me, Mery Andrea ARNP. History of Present Illness Service Date and Time: 06/29/2021 1620 Previous diagnosis: Mild, Obstructive Sleep Apnea-Hypopnea Syndrome AHI: 7.0 Reason for follow up: three month (Followup - positional therapy) Prior sleep studies: Yes Year and Where: 2020 - [facility] Type of Sleep Study: Home sleep study HPI additional information: BECKY HUNTER was diagnosed to have mild, AHI 7.0, obstructive sleep apnea- hypopnea syndrome and returns via video Telehealth visit today for positional therapy three month follow-up. CPAP Compliance Data Compliance data discussion: She is trying to get at least 7 hours a night of sleep. She is able to stay on her sides to sleep or sleeps on her stomach. She does not use any device other than a pillow to stay off her back. Subjective On therapy, patient: reports: sleeping better, awakening more refreshed, being more awake and alert during the day, more rested overall. denies: drowsiness while driving Initial [place] Sleepiness Scale score: 9 (in 2020) Current [place] Sleepiness Scale score: 2 Allergies and Home Medications Home medication list reviewed: Yes (no changes) Review of Systems Review of systems same as previous: Yes (no changes) Physical Exam Vital signs obtained and entered by: Telehealth visit to limit exposure during Covid pandemic Height: 5 ft Impression and Plan 1. Obstructive Sleep Apnea-Hypopnea Syndrome, mild. Using positional therapy, the patient has better sleep quality and is more rested overall. Patient has been having success of being able to stay off of her back. She states she is happy with current positional therapy and is feeling rested in the mornings. She uses a pillow regularly and is able to get on average 7 hours of sleep nightly. Patient has not been working on losing weight recently but she has not been gaining. Patient was encouraged to lose weight for their overall health and to reduce apneas. Patient's apnea severity and rationale for treatment to reduce apnea, improve sleep quality and reduce cardiovascular and cerebrovascular events was reviewed. * Continue positional therapy * Notify me if snoring with mask or feeling that the pressure is too much or too little * Continue to try to lose weight * Call this office if any problems * Return for follow up in 6 months, or sooner if concerns arise Counseling Topics: Sleeping position, Weight loss health impact Visit Type: Telehealth Video Video Type: VSee Patient Location: Home Location of Provider: Office Patient agrees and consents to this telehealth visit type: Yes Patient agrees to have their insurance billed: Yes Time Spent with Patient (minutes): 12 Provider Statement: I spent 100% of the Telehealth Video Call with the patient with greater than 50% spent counseling the patient and coordination of care.
== END 2021-06-29 16:30 | disposition home or self-care (01) ==
LOC: SC 16:29
PROVIDERS: ATTEND Nurse Practitioner Family
DX: G47.33 Obstructive sleep apnea (adult) (pediatric) (principal)

== ENCOUNTER 2021-12-27 08:00 | Outpatient (CLI) | payer OTHER ==
--- NOTE | 2021-12-28 08:18 | XRAY Report ---
PROCEDURE: Abdomen 2 View X-Ray INDICATIONS: ABDOMINAL PAIN TECHNIQUE: 2 views of the abdomen were acquired. COMPARISON: None. FINDINGS: Surgical changes and devices: None. Bowel: No pneumoperitoneum. The bowel gas pattern is normal. Soft tissues: No masses; visualized solid organ contours appear normal in size. No suspicious abdom inal calcifications. Bones: No suspicious bony abnormalities. IMPRESSION: Normal study. Reviewed by: Javier Valencia MD on 12/28/2021 8:16 AM PDT Approved by: Javier Valencia MD on 12/28/2021 8:16 AM PDT Station ID: [id number]
== END 2021-12-27 23:59 | disposition home or self-care (01) ==
LOC: DI.N 08:00
PROVIDERS: ATTEND Physician Assistant Medical
DX: R10.9 Unspecified abdominal pain (principal)

== ENCOUNTER 2022-10-08 10:31 | Emergency (ER) | payer OTHER ==
[2022-10-08 11:45] LABS: BASOPHILS % (AUTO) 0.6 %; EOSINOPHILS # (AUTO) 0.2 10^3/uL (0.0-0.7); EOSINOPHILS % (AUTO) 2.8 %; HCT - HEMATOCRIT 44.5 % (37.0-47.0); HGB - HEMOGLOBIN 14.6 g/dL (12.0-16.0); LYMPHOCYTES # (AUTO) 2.5 10^3/uL (1.5-3.5); LYMPHOCYTES % (AUTO) 39.8 %; MEAN CORPUSCULAR HEMOGLOBIN 28.5 pg (27.0-31.0); MEAN CORPUSCULAR HGB CONC 32.8 g/dL (32.0-36.0); MEAN CORPUSCULAR VOLUME 86.9 fL (81.0-99.0); MEAN PLATELET VOLUME 8.8 fL (7.9-10.8); MONOCYTES # (AUTO) 0.5 10^3/uL (0.0-1.0); MONOCYTES % (AUTO) 7.4 %; NEUTROPHILS # (AUTO) 3.1 10^3/uL (1.5-6.6); NEUTROPHILS % (AUTO) 49.2 %; PLT - PLATELET COUNT 259 10^3/uL (130-450); RED BLOOD COUNT 5.12 10^6/uL (4.20-5.40); RED CELL DISTRIBUTION WIDTH 13.2 % (12.0-15.0); WHITE BLOOD COUNT 6.4 x10^3/uL (4.8-10.8)
--- NOTE | 2022-10-08 12:02 | XRAY Report ---
PROCEDURE: Chest 1 View X-Ray INDICATIONS: Chest Pain TECHNIQUE: One view of the chest was acquired. COMPARISON: 11/11/2018 FINDINGS: Surgical changes and devices: None. Lungs and pleura: No pleural effusions or pneumothorax. Lungs are clear. Mediastinum: Mediastinal contours appear normal. Heart size is normal. Bones and chest wall: No suspicious bony lesions. Overlying soft tissues appear unremarkable. IMPRESSION: No acute radiographic abnormality. Reviewed by: Sean Leblanc MD on 10/08/2022 12:01 PM [facility] Approved by: Sean Leblanc MD on 10/08/2022 12:01 PM [facility] Station ID: [id number]
[2022-10-08 12:03] LABS: ALBUMIN 4.7 g/dL (3.2-5.5); ALBUMIN/GLOBULIN RATIO 1.3 (1.0-2.2); BILIRUBIN,TOTAL 0.7 mg/dL (0.2-1.0); CALCIUM 9.5 mg/dL (8.5-10.3); CREATININE 0.6 mg/dL (0.4-1.0); POTASSIUM 3.8 mmol/L (3.5-5.0); TOTAL PROTEIN 8.4 g/dL (6.7-8.2)
[2022-10-08] MEDS ORDERED: ENALAPRILAT 1.25 MG/ML VIAL IVP STA (15:59)
--- NOTE | 2022-10-08 16:07 | ED Physician Documentation ---
History of Present Illness - Stated complaint Stated Complaint: HIGH BP - Chief complaint Chief Complaint: Cardiac - Additonal information Additional information: I 31-year-old female presents emergency department for concern of elevated blood pressures. Over the last week she has had some mild dyspnea vague headaches and some blurry vision. She got concerned about her blood pressure and checked it at home and found that the systolic was greater than 220. She previously has no history of hypertension though there is a strong family history. Patient denies tobacco. No history of diabetes. She otherwise takes no prescribed medica tions. Denies possibility of . LMP was 09/24/2022. Review of Systems Constitutional: denies: Fever, Chills Eyes: reports: Decreased vision Cardiac: denies: Chest pain / pressure, Palpitations Respiratory: denies: Dyspnea GI: reports: Reviewed and negative : reports: Reviewed and negative Skin: reports: Reviewed and negative Musculoskeletal: reports: Reviewed and negative PD PAST MEDICAL HISTORY - Past Medical History Past Medical History: Yes Cardiovascular: None Respiratory: Asthma Neuro: None Endocrine/Autoimmune: None GI: None CHARGE AUDITOR: None : None HEENT: None Psych: None Musculoskeletal: None Derm: None - Past Surgical History Past Surgical History: Yes /CHARGE AUDITOR: section - Present Medications Home Medications: Ambulatory Orders Medication Instructions Recorded Confirmed Acetaminophen 650 mg PO Q6HR #30 tablet 05/12/19 10/08/22 Albuterol Sulf [Ventolin Hfa 1 - 2 puffs INH Q4HR PRN #1 inhaler 10/16/19 10/08/22 Inhaler] Lisinopril [Zestril] 10 mg PO DAILY #30 tablet 10/08/22 - Allergies Allergies/Adverse Reactions: Allergies Allergy/AdvReac Type Severity Reaction Status Date / Time No Known Drug Allergies Allergy Verified 10/08/22 10:59 - Social History Does the pt smoke?: No Smoking Status: Never smoker Does the pt drink ETOH?: No Does the pt have substance abuse?: No - Immunizations Immunizations are current?: Yes - POLST Patient has POLST: No PD ED PE NORMAL - General General: Alert and oriented X 3, No acute distress - HEENT HEENT: PERRL - Neck Neck: Supple, no meningeal sign, No adenopathy - Cardiac Cardiac: RRR, No murmur - Respiratory Respiratory: No respiratory distress, Clear bilaterally - Abdomen Abdomen: Normal bowel sounds, Soft - Back Back: No CVA TTP, No spinal TTP - Derm Derm: Normal color, Warm and dry, No rash - Extremities Extremities: No deformity - Neuro Neuro: Alert and oriented X 3, office executive 2-12 intact Eye Opening: Spontaneous Motor: Obeys Commands Verbal: Oriented GCS Score: 15 Results - Vitals Vitals: Vital Signs - 24 hr 10/08/22 10/08/22 10/08/22 11:00 11:05 15:05 Temperature 36.6 C 36.6 C Heart Rate 70 70 81 Respiratory 16 16 18 Rate Blood Pressure 208/124 H 208/124 H 222/146 H O2 Saturation 99 99 100 10/08/22 17:00 Temperature Heart Rate 81 Respiratory 24 Rate Blood Pressure 153/108 H O2 Saturation 98 Oxygen O2 Source Room air - EKG (time done) 1112 Rate: Rate (enter#) (73) Rhythm: NSR [place]: Normal Intervals: Normal [place] QRS: Normal Ischemia: Normal ST segments Compare to prior EKG: Old EKG unavailable Computer interpretation: Agree with computer - Labs Labs: Laboratory Tests 10/08/22 10/08/22 10/08/22 11:40 11:40 11:40 WBC 6.4 RBC 5.12 Hgb 14.6 Hct 44.5 MCV 86.9 MCH 28.5 MCHC 32.8 RDW 13.2 Plt Count 259 MPV 8.8 Neut # (Auto) 3.1 Lymph # (Auto) 2.5 [place] # (Auto) 0.5 Eos # (Auto) 0.2 Baso # (Auto) 0.0 Absolute Nucleated RBC 0.00 Nucleated RBC % 0.0 Sodium 137 Potassium 3.8 Chloride 99 L Carbon Dioxide 28 Anion Gap 10.0 BUN 11 Creatinine 0.6 Estimated GFR (MDRD) 115 Glucose 107 H Calcium 9.5 Total Bilirubin 0.7 AST 39 ALT 81 H Alkaline Phosphatase 34 L Troponin I High Sens 3.2 Total Protein 8.4 H Albumin 4.7 Globulin 3.7 Albumin/Globulin Ratio 1.3 Lipase 43 - Rads (name of study) cxr Radiology: Final report received (No acute cardiopulmonary abnormality) PD Medical Decision Making - ED course Complexity details: reviewed results, re-evaluated patient, considered differential, d/w patient ED course: This is a very well-appearing 31-year-old female who presents emergency department for concerns of elevated blood pressure. Over the last few days she has had some vague headache blurry vision and chest heaviness. No history of previous hypertension though on initial presentation to the ER she does have a systolic of 220. My examination of the patient reveals a well-appearing young female. She has a blood pressure of 186 systolic in the room. Strong equal pulses. No leg swelling. Cardiopulmonary auscultation was unremarkable. Her neurological exam was nonfocal and also unremarkable. We did obtain a CBC and electrolytes and have no findings to suggest endorgan dysfunction. Her EKG is entirely nonischemic and her chest x-ray is without findings to suggest cardiomegaly, pleural effusion or congestive heart failure. Clinically patient does not present as symptomatic for hypertensive emergency/urgency However such a elevated blood pressure likely would benefit from further evaluation and treatment. She was given an initial dose of IV enalapril here in the emergency department which has successfully decreased her blood pressure to just over 180. It is unclear how long she has had elevated blood pressure and dropping it too quickly could be deleterious to her health. Therefore I will start her on lisinopril 10 mg once daily. She is advised to check her blood pressures each day in the a.m. She is scheduled to see her primary care doctor, Dr. Lindsey on the of this month. Emergent return precautions were discussed for worsening symptoms. Departure - Departure Disposition: 01 Home, Self Care Clinical Impression: Hypertension Qualifiers: Hypertension type: unspecified Qualified Code(s): I10 - Essential (primary) hypertension Condition: Stable Record reviewed to determine appropriate education?: Yes Instructions: Inhibitors LUIS, Hypertension Control Prescriptions: Lisinopril [Zestril] 10 mg PO DAILY #30 tablet Comments: You came to the emergency department today because she had some elevated blood pressures at home. Here in the emergency department your CBC and electrolytes were essentially normal. Your EKG and chest x-ray showed no worrisome findings. However such an elevated blood pressure should be treated. Lets have you start taking lisinopril 10 mg once a day. I would like you to check your blood pressures once each day about 2 hours after taking the lisinopril. Keep a record of these blood pressures. Return to the emergency department if you have any fainting episodes, slurred speech sudden weakness in your arms or legs, Chest pain or severe shortness of air.
[2022-10-08 17:01] VITALS: BP 153/108
[2022-10-08] MEDS ORDERED: ENALAPRILAT 1.25 MG/ML VIAL IVP SCH (18:00)
== END 2022-10-08 17:24 | disposition home or self-care (01) ==
LOC: ED 10:31
DX: I10 Essential (primary) hypertension (principal)
CPT/HCPCS: 36415; 80053; 83690; 84484; 85025; 93005; 96374; 99284